=== PATIENT | female | born 1970 | race Asian ===

== ENCOUNTER 2024-11-09 09:38 | Day surgery (SDC) | payer OTHER ==
[2024-11-08 12:41] VITALS: BMI 23.2
[2024-11-09 11:25] VITALS: RESP 18; TEMP 97.7
[2024-11-09 12:24] VITALS: BP 110/62; PULSE 68
== END 2024-11-09 12:07 | disposition home or self-care (01) ==
LOC: FASU-ENDO 09:38
PROVIDERS: ATTEND Internal Medicine Gastroenterology
PROC: 0DJD8ZZ Inspection of Lower Intestinal Tract, Via Natural or Artificial Opening Endoscopic (ICD-10-PCS; principal; 2024-11-09 10:33)
DX: Z12.11 Encounter for screening for malignant neoplasm of colon (principal); K64.1 Second degree hemorrhoids; K64.8 Other hemorrhoids; K57.30 Diverticulosis of large intestine without perforation or abscess without bleeding
CPT/HCPCS: 82962